=== PATIENT | female | born 1990 | race Caucasian/White ===

== ENCOUNTER 2017-12-26 08:52 | Emergency (ER) | payer SELFPAY ==
[~2017-12-26] VITALS: Ht 157.5 cm; Wt 33.2 kg
[~2017-12-26 08:52] MED LIST: NORE0.3519 PO
[2017-12-26 09:07] VITALS: BP 134/89
[2017-12-26] MEDS: KETOROLAC 60 MG/2 ML VIAL IM ONE (09:51)
[2017-12-26] MEDS: LEVOFLOXACIN 500 MG TAB PO ONE (09:52)
[2017-12-26 10:09] VITALS: BP 134/89
== END 2017-12-26 10:09 | disposition home or self-care (01) ==
LOC: MED 08:52
DX: N39.0 Urinary tract infection, site not specified (principal); R03.0 Elevated blood-pressure reading, without diagnosis of hypertension; Z79.899 Other long term (current) drug therapy
CPT/HCPCS: 81002; 81025; 96372; 99283; J1885

== ENCOUNTER 2019-05-27 01:30 | Observation (INO) | payer OTHER ==
[~2019-05-27] VITALS: Ht 157.5 cm; Wt 79.4 kg
[2019-05-27] MEDS ORDERED: LIDOCAINE 2% 1000 MG/50 ML VIAL INJ ONE (02:25)
[2019-05-27] MEDS ORDERED: cefTRIAXone 1,000 MG in LIDOCAINE MPF 1% 2.1 ML IM ONE (02:25)
[2019-05-27] MEDS ORDERED: cefTRIAXone 1,000 MG VIAL ONE (02:27)
[2019-05-27] MEDS ORDERED: LIDOCAINE 1% 500 MG/50 ML VIAL ONE (02:28)
[2019-05-27 02:43] VITALS: BP 116/55
[2019-05-27 03:19] LABS: APPEARANCE,URINE SL CLOUDY (CLEAR); BILIRUBIN,URINE NEGATIVE (NEGATIVE); BLOOD, URINE NEGATIVE (NEGATIVE); COLOR,URINE YELLOW (YELLOW); LEUKOCYTE ESTERASE ,URINE 2+ (NEGATIVE); NITRITE, URINE NEGATIVE (NEGATIVE); UGLUCOSE NEGATIVE (NEGATIVE)
[2019-05-27 04:09] LABS: RBC,URINE 0-5 /HPF (0-5); WBC,URINE 20-60 /HPF (0-5)
== END 2019-05-27 03:25 | disposition home or self-care (01) ==
LOC: MLD 01:30
PROVIDERS: ADMIT Obstetrics & Gynecology; ATTEND Obstetrics & Gynecology
DX: O26.892 Other specified pregnancy related conditions, second trimester (principal); R10.9 Unspecified abdominal pain; Z3A.23 23 weeks gestation of pregnancy
CPT/HCPCS: 81001; 87086; G0378; J0696; J2001

== ENCOUNTER 2019-12-16 00:35 | Emergency (ER) | payer OTHER ==
[~2019-12-16] VITALS: Ht 157.5 cm; Wt 77.1 kg
[2019-12-16 00:40] VITALS: BP 123/81
--- NOTE | 2019-12-16 00:40 | NUR ---
PT AMBULATED TO ER BED 04
[2019-12-16] MEDS ORDERED: NACL 0.9% 1,000 ML IV ONE (01:06)
--- NOTE | 2019-12-16 01:09 | NUR ---
29/F presents ambulatory to ED, c/o cramping epigastric and RUQ pain, x6hrs. Pt reports similar episode few days ago, similar pain with cholelithiasis in the past. Denies fever/chills, cough/congestion, CP/SOB, n/v/d, dysuria. Pt awake and alert, skin normal color warm and dry, rr even and unlabored. Lung sounds clear BL. BS active x4, abd soft round tender to epigastric and RUQ. Hx cholelithiasis Rx tylenol 6hrs without relief.
[2019-12-16] MEDS ORDERED: ONDANSETRON 4 MG/2 ML VIAL IVP ONE (01:10)
[2019-12-16] MEDS ORDERED: KETOROLAC 30 MG/ML VIAL IVP ONE (01:10)
--- NOTE | 2019-12-16 01:20 | NUR ---
IV PLACED IN L AC 20. IV SITE IS PATENT.
--- NOTE | 2019-12-16 01:28 | NUR ---
US AT BEDSIDE.
[2019-12-16 01:31] LABS: BASOPHILS % (AUTO) 0.3 % (0.0-2.0); EOSINOPHILS # (AUTO) 0.2 K/uL (0-0.4); EOSINOPHILS % (AUTO) 1.5 % (0.0-4.0); HEMOGLOBIN 13.7 g/dL (12.0-16.0); LYMPHOCYTES # (AUTO) 3.4 K/uL (2.5-16.5); LYMPHOCYTES % (AUTO) 23.5 % (20.5-51.1); MEAN CORPUSCULAR HEMOGLOBIN 29 pg (27-31); MEAN CORPUSCULAR HGB CONC 33 g/dL (33-37); MONOCYTES # (AUTO) 0.9 K/uL (0.8-1.0); MONOCYTES % (AUTO) 6.3 % (1.7-9.3); NEUTROPHILS % (AUTO) 68.4 % (42.2-75.2); PLATELET COUNT (AUTO) 226 K/uL (140-450); RED BLOOD CELL COUNT(AUTO) 4.72 MIL/uL (4.20-5.40); RED CELL DISTRIBUTION WIDTH 14.5 % (11.6-13.7); WHITE BLOOD COUNT (AUTO) 14.6 K/uL (4.8-10.8)
[2019-12-16 01:37] LABS: APPEARANCE,URINE SL CLOUDY (CLEAR); BLOOD, URINE NEGATIVE (NEGATIVE); COLOR,URINE YELLOW (YELLOW); LEUKOCYTE ESTERASE ,URINE NEGATIVE (NEGATIVE); NITRITE, URINE NEGATIVE (NEGATIVE); UGLUCOSE NEGATIVE (NEGATIVE)
[2019-12-16] MEDS ORDERED: ALUMINUM HYD/MAG/SIMETHICONE 30 ML UDC PO ONE (01:40)
[2019-12-16] MEDS ORDERED: MORPHINE SULFATE 2 MG/ML SYR IVP ONE (01:40)
[2019-12-16 01:49] LABS: ALBUMIN 3.7 g/dL (3.4-5.0); ANION GAP 12.1 (8-16); CARBON DIOXIDE 27.9 mmol/L (21-32); CREATININE 0.9 mg/dL (0.6-1.3); TOTAL BILIRUBIN 1.4 mg/dL (0.0-1.0)
[2019-12-16 01:51] LABS: BILIRUBIN,URINE NEGATIVE (NEGATIVE)
--- NOTE | 2019-12-16 01:52 | NUR ---
PT GIVEN MORPHINE 2MG IVP. IVP PATENT. NO REDNESS, SWELLING, OR SWELLING NOTED AT SITE. PT ON CARIDAC MONITOR. VSS.
--- NOTE | 2019-12-16 02:56 | NUR ---
PT STATES SHE IS GETTING A RIDE FROM FAMILY MEMBER. PT ROAD TESTED AND ABLE TO AMUALTE WITH STEADY GAIT. VSS. PT STATES PAIN HAS REDUCED FROM 7/10 ABD PAIN TO 3/10.
[2019-12-16 02:57] VITALS: BP 122/83
--- NOTE | 2019-12-16 02:57 | NUR ---
Patient discharged with v/s stable. Written and verbal after care instructions given and explained. Patient alert, oriented and verbalized understanding of instructions. Ambulatory with steady gait. All questions addressed prior to discharge. ID band removed. Patient advised to follow up with PMD. Rx of NAPROSYN, NORCO 5/325 given. Patient educated on indication of medication including possible reaction and side effects. Opportunity to ask questions provided and answered.
== END 2019-12-16 02:57 | disposition home or self-care (01) ==
LOC: MED 00:35
DX: K80.20 Calculus of gallbladder without cholecystitis without obstruction (principal); Z79.899 Other long term (current) drug therapy
CPT/HCPCS: 36415; 76705; 80053; 81003; 81025; 83690; 85025; 96374; 96375; 99284; J1885; J2270; J2405; J7030; Q0092

== ENCOUNTER 2019-12-27 18:11 | Emergency (ER) | payer OTHER ==
[~2019-12-27] VITALS: Ht 157.5 cm; Wt 77.1 kg
[2019-12-27 18:15] VITALS: BP 123/77
--- NOTE | 2019-12-27 18:21 | NUR ---
PT AMBULATED TO ER BED 11
[2019-12-27 18:23] VITALS: BP 123/77
--- NOTE | 2019-12-27 18:30 | NUR ---
C/O BACK PAIN X2 WEEKS, STARTING AT LUMBAR REGION AND EXTENDING DOWN TO COCCYX. PT DENIES ANY RECENT INJURY/ UTI SYMPTOMS. ALSO C/O ABCESS OF SIDE OF LEFT BREAST, PT STATES SHE ATTEMPTED TO POP IT THIS MORNING, HAS WHITE DRAINAGE AND NOW IT IS GIVING HER 7/10 PAIN.PT AWAKE , ALERT , AFIBRILE , AMBULATORY ,DENIES N/V NO PMH NKA
--- NOTE | 2019-12-27 18:32 | NUR ---
DR MIRZA AT BEDSIDE EVALUATING PT.
[2019-12-27] MEDS ORDERED: KETOROLAC 30 MG/ML VIAL IM ONE (18:35)
[2019-12-27] MEDS ORDERED: CYCLOBENZAPRINE 10 MG TAB PO ONE (18:35)
[2019-12-27 18:43] LABS: APPEARANCE,URINE CLEAR (CLEAR); BILIRUBIN,URINE NEGATIVE (NEGATIVE); BLOOD, URINE NEGATIVE (NEGATIVE); COLOR,URINE YELLOW (YELLOW); LEUKOCYTE ESTERASE ,URINE NEGATIVE (NEGATIVE); NITRITE, URINE NEGATIVE (NEGATIVE); UGLUCOSE NEGATIVE (NEGATIVE)
--- NOTE | 2019-12-27 18:44 | NUR ---
PT TO XRAY VIA WHEELCHAIR.
--- NOTE | 2019-12-27 19:09 | NUR ---
GAVE REPORT TO PERI PINEDA.PT COMFORTABLE IN BED SIDE RAILS UP X1 AND LOCK.
--- NOTE | 2019-12-27 19:12 | NUR ---
RECIEVED CHANGE OF SHIFT REPORT FROM PETE WHITT. ASSUMED PT CARE THIS TIME.
--- NOTE | 2019-12-27 19:32 | NUR ---
Patient discharged with v/s stable. Written and verbal after care instructions given and explained. Patient alert, oriented and verbalized understanding of instructions. Ambulatory with steady gait. All questions addressed prior to discharge. ID band removed. Patient advised to follow up with PMD. Rx of FLEXERIL given. Patient educated on indication of medication including possible reaction and side effects. Opportunity to ask questions provided and answered.
== END 2019-12-27 19:32 | disposition home or self-care (01) ==
LOC: MERGE 18:11 → MED 18:11
DX: M54.5 Low back pain (principal); N63.10 Unspecified lump in the right breast, unspecified quadrant
CPT/HCPCS: 72110; 81003; 81025; 96372; 99283; J1885

== ENCOUNTER 2019-12-29 11:38 | Emergency (ER) | payer OTHER ==
[~2019-12-29] VITALS: Ht 157.5 cm; Wt 77.1 kg
[2019-12-29 11:40] VITALS: BP 106/59
--- NOTE | 2019-12-29 11:40 | NUR ---
Patient BIBA ALS, transferred to bed 1. RN evaluating patient at bedside.
--- NOTE | 2019-12-29 11:41 | NUR ---
29 Y/O FEMALE BIBA C/O SUDDEN CHEST PAIN . PT STATES AT AROUND 10 AM THIS MORNING SHE STARTED HAVING A SHARP CHEST. PT RATES PAIN 7/10, DESCRIBES SHARP PRESSURE. PT STATES SHE HAS NEVER HAD THIS FEELING BEFORE. PT STATES SHE HAS A LOT OF STRESS RIGHT NOW W/ BABY AND MEDICAL ISSUES. PT DENIES N/V/D/F. PT BREATHING EVEN AND UNLABORED. PT RESTING IN BED AT LOWEST POSITION, HOB ELEVATED, SIDE RAIL X1. HX: ARRYTHMIA " DX A WHILE AGO."
--- NOTE | 2019-12-29 12:23 | NUR ---
INFORMED DR. LIAO PT IS FEELING VERY ANXIOUS AND HR IS IN 140s. REQUESTED GIVING HER ATIVAN TO HELP EASE HER ANXIETY. PER DR LIAO IF PT HAS A RIDE HOME, WE CAN MEDICATE WITH ATIVAN. WILL ASK PT.
[2019-12-29] MEDS: KETOROLAC 30 MG/ML VIAL IM ONE (12:24)
--- NOTE | 2019-12-29 12:28 | NUR ---
PT STATES SHE WILL BE HAVING FAMILY PICK HER UP ONCE SHE IS DISCHARGED.
[2019-12-29] MEDS: LORazepam 2 MG/ML VIAL IM ONE (12:37)
[2019-12-29 13:22] VITALS: BP 110/61
--- NOTE | 2019-12-29 13:26 | NUR ---
Patient discharged with v/s stable. Written and verbal after care instructions given and explained. Patient alert, oriented and verbalized understanding of instructions. Ambulatory with steady gait. All questions addressed prior to discharge. ID band removed. Patient advised to follow up with PMD. Rx of MOTRIN given. Patient educated on indication of medication including possible reaction and side effects. Opportunity to ask questions provided and answered. PT STATED HER SISTER IN LAW WILL BE PICKING HER UP.
== END 2019-12-29 13:26 | disposition home or self-care (01) ==
LOC: MED 11:38
DX: R07.9 Chest pain, unspecified (principal); F41.9 Anxiety disorder, unspecified; Z79.899 Other long term (current) drug therapy
CPT/HCPCS: 71045; 81002; 81025; 93005; 96372; 99284; J1885; J2060; Q0092

== ENCOUNTER 2020-02-04 20:39 | Emergency (ER) | payer OTHER ==
--- NOTE | 2020-02-04 21:00 | NUR ---
PT LWBS WITHOUT BEING TRIAGED.
== END 2020-02-04 21:00 | disposition left against medical advice (07) ==
LOC: MED 20:39
DX: R10.9 Unspecified abdominal pain (principal); Z53.21 Procedure and treatment not carried out due to patient leaving prior to being seen by health care provider

== ENCOUNTER 2020-02-10 03:18 | Inpatient (IN) | payer OTHER ==
[~2020-02-10] VITALS: Ht 157.5 cm; Wt 73.5 kg
--- NOTE | 2020-02-10 03:26 | NUR ---
PT NAOMI ALS. TAKEN TO BED 12
--- NOTE | 2020-02-10 03:30 | NUR ---
29 YO F BIBA FOR C/C OF 05/13 RUQ ABDOMINAL PAIN THAT RADIATES TO EPIGASTRIC REGION SINCE 3PM TODAY. PT STATES SHE WAS SEEN FOR AN ULTRASOUND AT A CLINIC TODAY AND IS UNSURE OF WHAT THE RESULTS ARE. SHE CAME TO THE ER "BECAUSE SHE CANT TAKE THE PAIN ANYMORE." PT STATES SHE HAS BEEN FEELING NAUSEOUS WITH NO V/D. PT STATES SHE TOOK 800MG OF IBUPROFEN AT 1900 WITH NO RELIEF OF SYMPTOMS. DENIES COUGH, FEVER, SOB, AND TRAVEL. BED LOCKED AND IN LOWEST POSITION. NKA MED HX: GALLSTONES RX: CONTROL PILLS
[2020-02-10 03:31] VITALS: BP 130/95
[2020-02-10] MEDS ORDERED: NACL 0.9% 500 ML IV ONE (03:35)
[2020-02-10] MEDS ORDERED: KETOROLAC 30 MG/ML VIAL IVP ONE (03:35)
[2020-02-10] MEDS ORDERED: ONDANSETRON 4 MG/2 ML VIAL IVP ONE (03:35)
--- NOTE | 2020-02-10 03:58 | NUR ---
Ultrasound at bedside.
[2020-02-10 04:51] LABS: ANION GAP 14.8 (8-16); CARBON DIOXIDE 27.9 mmol/L (21-32); CREATININE 0.8 mg/dL (0.6-1.3); POTASSIUM 3.7 mmol/L (3.5-5.1); TOTAL BILIRUBIN 2.3 mg/dL (0.0-1.0)
[2020-02-10 05:08] LABS: BASOPHILS % (AUTO) 0.2 % (0.0-2.0); EOSINOPHILS # (AUTO) 0.1 K/uL (0-0.4); EOSINOPHILS % (AUTO) 1.2 % (0.0-4.0); HEMATOCRIT 47.6 % (36-48); HEMOGLOBIN 15.6 g/dL (12.0-16.0); LYMPHOCYTES # (AUTO) 1.8 K/uL (2.5-16.5); LYMPHOCYTES % (AUTO) 17.1 % (20.5-51.1); MEAN CORPUSCULAR HEMOGLOBIN 29 pg (27-31); MEAN CORPUSCULAR HGB CONC 33 g/dL (33-37); MEAN CORPUSCULAR VOLUME 88.7 fL (80-94); MONOCYTES # (AUTO) 0.8 K/uL (0.8-1.0); MONOCYTES % (AUTO) 7.7 % (1.7-9.3); NEUTROPHILS # (AUTO) 7.7 K/uL (1.8-7.7); NEUTROPHILS % (AUTO) 73.8 % (42.2-75.2); PLATELET COUNT (AUTO) 229 K/uL (140-450); RED BLOOD CELL COUNT(AUTO) 5.37 MIL/uL (4.20-5.40); RED CELL DISTRIBUTION WIDTH 13.8 % (11.6-13.7); WHITE BLOOD COUNT (AUTO) 10.5 K/uL (4.8-10.8)
--- NOTE | 2020-02-10 05:15 | NUR ---
PT STATES HER PAIN IS STILL 10/10 POST IVP OF TORODOL. JEROMED MADE AWARE.
[2020-02-10] MEDS ORDERED: MORPHINE SULFATE 2 MG/ML SYR IVP ONE (05:20)
[2020-02-10] MEDS ORDERED: NACL 0.9% 1,000 ML IV ONE (05:20)
--- NOTE | 2020-02-10 06:25 | NUR ---
Dr. Del Toro examining patient.
--- NOTE | 2020-02-10 06:45 | NUR ---
PT REQUESTING MORE PAIN MEDICATION. PAIN IS STILL 6/10 POST 2MG IVP MORPHINE.
[2020-02-10] MEDS: NACL 0.9% 1,000 ML IV SCH ×2 (06:50→16:00)
[2020-02-10] MEDS ORDERED: SODIUM PHOSPHATE 118 ML ENEM RC PRN (06:50)
[2020-02-10] MEDS ORDERED: MAG SULF 2000 MG/WATER PREMIX 50 ML IV PRN (06:50)
[2020-02-10] MEDS ORDERED: ZOLPIDEM 5 MG TAB PO PRN (06:50)
[2020-02-10] MEDS ORDERED: ACETAMINOPHEN 325 MG TAB PO PRN (06:50)
[2020-02-10] MEDS ORDERED: HYDROcodone/APAP 5/325 MG 1 TAB TAB PO PRN (06:50)
[2020-02-10] MEDS ORDERED: DOCUSATE SODIUM 250 MG GELCAP PO PRN (06:50)
[2020-02-10] MEDS ORDERED: MAGNESIUM OXIDE 400 MG TAB PO PRN (06:50)
[2020-02-10] MEDS ORDERED: ALUMINUM HYD/MAG/SIMETHICONE 30 ML UDC PO PRN (06:50)
[2020-02-10] MEDS ORDERED: BISACODYL 10 MG SUPP RC PRN (06:50)
[2020-02-10] MEDS ORDERED: guaiFENesin DM 200/20 MG-10 ML 10 ML UDC PO PRN (06:50)
[2020-02-10] MEDS ORDERED: POTASSIUM CHLORIDE 10 MEQ TABER PO PRN (06:50)
[2020-02-10] MEDS ORDERED: ONDANSETRON 4 MG/2 ML VIAL IVP PRN (06:50)
[2020-02-10] MEDS ORDERED: ACETAMINOPHEN 650 MG SUPP RC PRN (06:50)
[2020-02-10] MEDS ORDERED: LORazepam 2 MG/ML VIAL IVP PRN (06:50)
[2020-02-10] MEDS ORDERED: cloNIDine 0.1 MG TAB PO PRN (06:50)
[2020-02-10] MEDS ORDERED: diphenhydrAMINE 50 MG/ML VIAL IVP PRN (06:50)
--- NOTE | 2020-02-10 07:25 | NUR ---
REPORT GIVEN TO PERI WATTS. TRANSFER OF CARE AT THIS TIME.
--- NOTE | 2020-02-10 07:25 | NUR ---
RECEIVED REPORT FROM ALISE FOR CONTUATION OF CARE
--- NOTE | 2020-02-10 08:00 | NUR ---
PT EATING IN BED, NO NEW NEEDS AT THIS TIME
[2020-02-10] MEDS ORDERED: NORETHINDRONE 0.35 MG PO SCH (09:00)
[2020-02-10] MEDS: FAMOTIDINE 20 MG/2 ML VIAL IV SCH (09:36)
[2020-02-10] MEDS: ENOXAPARIN 40 MG/0.4 ML SYR SUBQ SCH (09:51)
--- NOTE | 2020-02-10 10:00 | NUR ---
PT AMBULATED TO RESTROOM WITH STEADY GAIT
--- NOTE | 2020-02-10 12:11 | NUR ---
PT ASLEEP IN BED, AROUSABLE WITH VERBAL STIMULI.
--- NOTE | 2020-02-10 14:00 | NUR ---
PT EATING AT BEDSIDE, NO NEW NEEDS AT THIS TIME. DENIES PAIN
--- NOTE | 2020-02-10 15:05 | NUR ---
Pt admitted to room 106A from ED via gurney. Able to amb with steady gait from gurney to bed. Left AC IV 20G intact and asymptomatic. Medical hx obtained from pt. Pt oriented to room and unit. Call light placed within reach.
--- NOTE | 2020-02-10 15:05 | NUR ---
Patient will be admitted to care of DR. MORALES. Admited to MED SURGE. Will go to room 106A. Belongings list completed. Report to PERI GOSS.
[2020-02-10 15:30] VITALS: BP 119/79
--- NOTE | 2020-02-10 16:18 | NUR ---
PATIENT HAS BEEN SCREENED AND CATEGORIZED MODERATE NUTRITION RISK. PATIENT WILL BE SEEN WITHIN 3-5 DAYS OF ADMISSION. 02/12/20 02/14/[address]
[2020-02-10] MEDS: HYDROcodone/APAP 5/325 MG 1 TAB TAB PO PRN ×2 (16:21→22:34)
--- NOTE | 2020-02-10 18:30 | NUR ---
Pt inquiring if ok to resume Norethindrone as soon as available; pt normally takes it @ [address] daily. Dr. King paged re: pt concern. Awaiting call back.
--- NOTE | 2020-02-10 19:16 | NUR ---
Report given to pm nurse Barb.
--- NOTE | 2020-02-10 19:20 | NUR ---
RECEIVED PT IN STABLE CONDITION FROM AM NURSE. AWAKE,ALERT AND ORIENTED X4. MEDS SURG PT. AMBULATORY . WITH IVF INFUSING WELL ON THE LT AC G#20 . CLEAR AND PATENT. WITH NO C/O ANY PAIN AT THIS TIME. PLAN OF CARE DISCUSSED AND VERBALIZED UNDERSTANDING. FREQ ROUNDS NEEDED. BED ON LOW POSITION. SIDE RAILS UP X2. CALL LIGHT PLACED WITHIN REACH. WILL CONTINUE TO MONITOR.
--- NOTE | 2020-02-10 22:34 | NUR ---
C/O ABDOMINAL PAIN . MEDICATED A S ORDERED. WILL CONTINUE TO MONITOR.
[2020-02-10] MEDS: DEXT 5% / LACT RING 1,000 ML IV SCH (22:39)
[2020-02-10 23:52] LABS: ANION GAP 11.6 (8-16); CARBON DIOXIDE 27.4 mmol/L (21-32); CREATININE 0.7 mg/dL (0.6-1.3)
[2020-02-11] VITALS: BP 104/66
--- NOTE | 2020-02-11 00:30 | NUR ---
CHECKED ON PT. SLEEPING WELL. NO S/S OF ANY DISCOMFORT NOTED.
--- NOTE | 2020-02-11 02:30 | NUR ---
MADE OROUNDS PT. SLEEPING WITH NO S/S OF ANY PAIN NOR DISCOMFORT NOTED.
--- NOTE | 2020-02-11 04:00 | NUR ---
HAS BEEN UP TO THE BATHROOM , VOIDED. NO C/O PAIN NOTED.
[2020-02-11] MEDS: FAMOTIDINE 20 MG/2 ML VIAL IV SCH (06:03)
--- NOTE | 2020-02-11 06:10 | NUR ---
AWAKE. NO C/O DISCOMFORT /PAIN NOTED.
[2020-02-11 06:46] LABS: BASOPHILS % (AUTO) 0.3 % (0.0-2.0); EOSINOPHILS # (AUTO) 0.2 K/uL (0-0.4); EOSINOPHILS % (AUTO) 2.2 % (0.0-4.0); HEMATOCRIT 39.7 % (36-48); HEMOGLOBIN 13.1 g/dL (12.0-16.0); LYMPHOCYTES % (AUTO) 41.5 % (20.5-51.1); MEAN CORPUSCULAR HEMOGLOBIN 29 pg (27-31); MEAN CORPUSCULAR HGB CONC 33 g/dL (33-37); MEAN CORPUSCULAR VOLUME 89.1 fL (80-94); MONOCYTES # (AUTO) 0.6 K/uL (0.8-1.0); MONOCYTES % (AUTO) 8.2 % (1.7-9.3); NEUTROPHILS # (AUTO) 3.4 K/uL (1.8-7.7); NEUTROPHILS % (AUTO) 47.8 % (42.2-75.2); PLATELET COUNT (AUTO) 184 K/uL (140-450); RED BLOOD CELL COUNT(AUTO) 4.46 MIL/uL (4.20-5.40); RED CELL DISTRIBUTION WIDTH 13.6 % (11.6-13.7); WHITE BLOOD COUNT (AUTO) 7.1 K/uL (4.8-10.8)
--- NOTE | 2020-02-11 07:08 | NUR ---
CONTROL PILL NEED TO HAVE ORDER IF OK TO CONTINUE HERE. ENDORSE PT IN STABLE CONDITION TO AM NURSE.
[2020-02-11 07:23] LABS: ALBUMIN 2.8 g/dL (3.4-5.0); ANION GAP 10.6 (8-16); CARBON DIOXIDE 27.4 mmol/L (21-32); CREATININE 0.7 mg/dL (0.6-1.3); TOTAL BILIRUBIN 0.5 mg/dL (0.0-1.0)
--- NOTE | 2020-02-11 07:24 | NUR ---
RECEIVED PATIENT FROM LICENSED FINAL EXPENSE AGENTS NURSE FOR CONTINUITY OF CARE. PATIENT IS AAOX4, CROATIAN SPEAKING. RESPIRATIONS EVEN AND UNLABORED, ROOM AIR. VISIBLE CHEST RISE AND FALL NOTED. MED-SURG. ABDOMEN SOFT TENDER, BUT DENIES ABD PAIN AT THIS TIME. CLEAR LIQ DIET. SKIN WARM, DRY, AND INTACT. IV IN THE L AC G20 RUNNING D5LR AY 100 ML/HR. IVF RUNNING WELL. PATIENT IS AMBULATORY. SAFETY MEASURES IN PLACE. BED IN LOW POSITION. CALL LIGHT IS WITHIN REACH. WILL CONTINUE TO MONITOR.
[2020-02-11] MEDS: DEXT 5% / LACT RING 1,000 ML IV SCH ×3 (07:25→19:43)
[2020-02-11 08:00] VITALS: BP 107/70
[2020-02-11] MEDS: ENOXAPARIN 40 MG/0.4 ML SYR SUBQ SCH (08:42)
--- NOTE | 2020-02-11 08:42 | NUR ---
LOVENOX SUBQ IN THE ABD GIVEN. PLATELET 184. GIVEN MEDICATION EDUCATION. PATIENT VERBALIZED UNDERSTANDING. HUNG NEW IV BAG D5LR AT 100 ML/HR. PATIENT DENIES ABD PAIN AT THIS TIME. PER PATIENT, DR. JALLOH CAME BY AND TALKED TO HER. PLAN IS TO DO THE ERCP AND POSSIBLE LAP KAREEM TOMORROW.
--- NOTE | 2020-02-11 10:32 | NUR ---
PATIENT AWAKE, TEXTING. DENIES ABD PAIN. PATIENT STATED SHE IS OKAY. ALL NEEDS MET AT THIS TIME. SAFETY MEASURES IN PLACE. WILL CONTINUE TO MONITOR.
--- NOTE | 2020-02-11 11:53 | NUR ---
OBTAINED CONSENT FOR LAP KAREEM. PATIENT STATED THAT DR. JALLOH ALREADY EXPLAINED TO HER THE RISK AND BENEFITS OF THE SURGERY. IT IS SCHEDULED AT 1630 TODAY. PATIENT AWARE. NPO NOW.
--- NOTE | 2020-02-11 12:49 | NUR ---
DC PLANN[age] YRS OLD FEMALE PATIENT WAS ADMITTED FROM HOME WITH A DX OF PANCREATITIS LIPASE LEVEL 4140 . PT HAS NO MEDICAL HISTORY. ULTRASOUND OF GALLBLADDER SHOWED GALLSTONES. SEEN BY SURGEON DR JALLOH RECOMMENDED TO BE EVALUATED BY GI FOR POSSIBLE ERCP AND PLAN FOR LAP KAREEM. SEEN BY DR WALLER GI ORDERED TO HAVE LAP KAREEM AND ERCP TO BE CONSIDERED EITHER FOR THE PERSISTENT SYMPTOMS OR ABNORMAL CHOLANGIOGRAM. FURTHER RECOMMENDATION TO FOLLOW. DC PLAN PER MD RECOMMENDATIONS CM TO FOLLOW.
--- NOTE | 2020-02-11 13:00 | NUR ---
PATIENT AMBULATED TO THE BATHROOM. DENIES ABD PAIN AND DIZZINESS.
--- NOTE | 2020-02-11 14:02 | NUR ---
PER PHARMACIST SHREYA, PATIENT CAN TAKE CARE OF HER CONTROL. PATIENT STATED SHE WON'T TAKE IT YET UNTIL HER SURGERY IS DONE. SHREYA MADE JERONIMO
--- NOTE | 2020-02-11 14:35 | NUR ---
DR. HARGROVE MADE ROUNDS. MADE JERONIMO PATIENT GOING TO HAVE LAP KAREEM AT 1630
--- NOTE | 2020-02-11 15:44 | NUR ---
CHECKED PATIENT. PATIENT STATED SHE IS GETTING NERVOUS ABOUT THE SURGERY BUT AT THE SAME TIME BEING POSITIVE ABOUT THE PAIN BEING ONE.
[2020-02-11 16:00] VITALS: BP 111/72
[2020-02-11] MEDS ORDERED: LACTATED RINGERS 1,000 ML IV SCH (16:22)
[2020-02-11] MEDS ORDERED: MEPERIDINE 25 MG/ML SYR IVP PRN (16:25)
[2020-02-11] MEDS ORDERED: ONDANSETRON 4 MG/2 ML VIAL IVP PRN (16:25)
[2020-02-11] MEDS ORDERED: HYDROmorphone 1 MG/ML AMP IVP PRN (16:25)
--- NOTE | 2020-02-11 16:40 | NUR ---
PATIENT OFF TO OR FOR LAP KAREEM
[2020-02-11] MEDS: LIDOCAINE 1% 500 MG/50 ML VIAL ONE ×2 (16:56→18:39)
[2020-02-11] MEDS: BUPIVACAINE-MPF 0.25% 30 ML VIAL INJ ONE ×2 (16:56→18:38)
[2020-02-11] MEDS ORDERED: KETOROLAC 60 MG/2 ML VIAL IM ONE (17:11)
[2020-02-11] MEDS ORDERED: SEVOFLURANE 250 ML BTL INH ONE (17:11)
[2020-02-11] MEDS ORDERED: fentaNYL 0.05 MG/ML VIAL ONE (17:11)
[2020-02-11] MEDS ORDERED: DEXAMETHASONE 4 MG/ML VIAL ONE (17:11)
[2020-02-11] MEDS ORDERED: PROPOFOL 200 MG/20 ML VIAL IV ONE (17:11)
[2020-02-11] MEDS ORDERED: ROCURONIUM 50 MG/5 ML VIAL IV ONE (17:11)
[2020-02-11] MEDS ORDERED: SUGAMMADEX SODIUM 200 MG/2 ML VIAL IV ONE (17:11)
[2020-02-11] MEDS: HYDROmorphone PFS 2 MG/ML SYR ONE ×2 (18:55→19:05)
--- NOTE | 2020-02-11 19:15 | NUR ---
ENDORSED PATIENT TO PERI DASILVA FOR CONTINUITY OF CARE. PATIENT IS STILL IN OR FOR LAP KAREEM
--- NOTE | 2020-02-11 19:20 | NUR ---
RECEIVED ENDORSEMENT FROM AM SHIFT RN. PATIENT IS NOT IN HER ROOM, PATIENT IS STILL IN THE O.R. RIGHT NOW. PLAN OF CARE WAS DISCUSSED.
--- NOTE | 2020-02-11 19:30 | NUR ---
PATIENT WAS BACK TO HER ROOM VIA GURNEY FROM O.R. PATIENT IS NOTED WITH PAIN, BUT NURSE JOSE FROM O.R. SAID SHE GAVE THE PATIENT A PAIN MED IV. AOX4. NO SOB. NO DISTRESS NOTED. APPEARS WEAK. ASSESSMENT DONE, IV SITE AT LAC 20G, INTACT AND PATENT. NOTED 3 SMALL INCISIONS ON UPPER ABDOMEN AND 1 SMALL INCISION AT THE NAVEL, WITH DERMA PERSON ENDORSED BY PERI GARCIA. VERY MINIMAL BLEEDING NOTED AT NAVEL AREA. BP 115/68, HR65, 97.2, 16, 96% ON RA. KEPT COMFORTABLE. CALL LIGHT WITHIN REACH. WILL CONTINUE TO MONITOR.
[2020-02-11] MEDS: MORPHINE SULFATE 2 MG/ML SYR IVP PRN (22:17)
--- NOTE | 2020-02-11 22:17 | NUR ---
PATIENT C/O ABDOMINAL PAIN, 05/13. REPOSITIONED AND PAIN MED GIVEN ORDERED. MED EDUCATION PROVIDED.
[2020-02-11] MEDS ORDERED: HYDROcodone/APAP 5/325 MG 1 TAB TAB PO PRN (23:00)
--- NOTE | 2020-02-11 23:17 | NUR ---
PATIENT IS RESTING AND DENIES PAIN.
[2020-02-12] VITALS: BP 121/73
[2020-02-12] MEDS: MORPHINE SULFATE 2 MG/ML SYR IVP PRN ×2 (02:24→07:06)
--- NOTE | 2020-02-12 07:00 | NUR ---
RECEIVED REPORT FROM PUBLIC RELATIONS NURSE FOR CONTINUITY OF CARE. PATIENT IS STABLE. AOX4. ABDOMINAL PAIN WAS CONTROLLED WITH PAIN MED. NO RESPIRATORY DISTRESS. BED IN LOW POSITION, CALL LIGHT IN REACH, SAFETY MEASURE IN PLACE, WILL CONTINUE TO MONITOR. MNURLS
[2020-02-12] MEDS: FAMOTIDINE 20 MG/2 ML VIAL IV SCH (07:05)
--- NOTE | 2020-02-12 07:30 | NUR ---
PATIENT IS NOT IN ANY RESPIRATORY DISTRESS. ENDORSED TO AM SHIFT RN FOR CONTINUITY OF CARE.
[2020-02-12 08:00] VITALS: BP 121/70
[2020-02-12] MEDS: ENOXAPARIN 40 MG/0.4 ML SYR SUBQ SCH (08:48)
--- NOTE | 2020-02-12 08:51 | NUR ---
SCHEDULED AM MEDICATIONS GIVEN, PT TOLERATED WELL.
[2020-02-12] MEDS: DEXT 5% / LACT RING 1,000 ML IV SCH (08:55)
[2020-02-12] MEDS: HYDROcodone/APAP 5/325 MG 1 TAB TAB PO PRN (12:01)
--- NOTE | 2020-02-12 13:00 | NUR ---
PATIENT IS STABLE, DISCHARGE INSTRUCTION WAS GIVEN, VERBALIZED UNDERSTAND. PATIENT WAS TRANSFERRED TO PRIVATE CAR WITH WHEELCHAIR.
== END 2020-02-12 13:56 | disposition home or self-care (01) | DRG 263 ==
LOC: MED 03:18 → MMU 06:36 → MTU 14:21
PROVIDERS: ADMIT Hospitalist; ATTEND Hospitalist
PROC: BF101ZZ Fluoroscopy of Bile Ducts using Low Osmolar Contrast (ICD-10-PCS; 2020-02-11)
PROC: 0FT44ZZ Resection of Gallbladder, Percutaneous Endoscopic Approach (ICD-10-PCS; principal; 2020-02-11 16:30)
DX: K85.10 Biliary acute pancreatitis without necrosis or infection (principal); K80.70 Calculus of gallbladder and bile duct without cholecystitis without obstruction; K59.00 Constipation, unspecified
CPT/HCPCS: 36415; 74300; 76705; 80048; 80053; 83690; 85025; 87081; 96374; 96375; 99285; J1100; J1170; J1650; J1885; J2001; J2270; J2405; J2704; J3010; J3490; J7030; Q0092; Q9967

== ENCOUNTER 2020-12-25 01:45 | Emergency (ER) | payer OTHER ==
[~2020-12-25] VITALS: Ht 157.5 cm; Wt 67.1 kg
--- NOTE | 2020-12-25 01:45 | NUR ---
PATIENT TAKEN TO BED 11 VIA GURNEY WITH ASSISTENCE BY EMS.
[2020-12-25 01:52] VITALS: BP 128/77
--- NOTE | 2020-12-25 01:55 | NUR ---
PATIENT 30 Y/O FEMALE BIBA FOR C/O UPPER ABDOMINAL PAIN X 4 DAYS. PATIENT BS PRESENT X 4 QUADRANTS. ABDOMEN TENDER TO TOUCH RUQ, RLQ, AND LUQ. PATIENT STATES PAIN RADIATES TO R FLANK. PAIN 8/10, SHARP, AND CONTINOUS. PATIENT STATES HAS HAD EPISODES OF NAUSEA, AND DIARRHEA STARTED TODAY. KATEYN ALSO STATES THAT PRIOR TO ARRIVAL SHE URINATED AND FELT NEW ONSET OF BURNING WHIEL URINATING. 4MG ODT OF ZOFRAN GIVEN BY EMS PRIOR TO ARRIVAL. PATIENT ADMITS TO HX OF GALLBLADDER SURGERY. PATIENT ON BEDSIDE MONITOR. AFEBRILE. MEDHX: GALLBLADDER REMOVAL. ALLERGIES: NKA
[2020-12-25] MEDS ORDERED: NACL 0.9% 1,000 ML IV ONE (02:10)
[2020-12-25] MEDS ORDERED: MORPHINE SULFATE 4 MG/ML SYR IVP ONE (02:10)
[2020-12-25] MEDS ORDERED: ONDANSETRON 4 MG/2 ML VIAL IVP ONE (02:10)
--- NOTE | 2020-12-25 02:15 | NUR ---
LABS COLLECTED AND GIVEN TO Personal.
--- NOTE | 2020-12-25 02:20 | NUR ---
PATIENT SIGNED CONSENT FOR CT OF ABDOMEN/PELVIS WITH CONTRAST. IV 20G IN L AC PLACED AND PATENT.
[2020-12-25 02:23] LABS: APPEARANCE,URINE CLEAR (CLEAR); BILIRUBIN,URINE NEGATIVE (NEGATIVE); BLOOD, URINE TRACE-I (NEGATIVE); COLOR,URINE YELLOW (YELLOW); LEUKOCYTE ESTERASE ,URINE TRACE (NEGATIVE); NITRITE, URINE NEGATIVE (NEGATIVE); UGLUCOSE NEGATIVE (NEGATIVE)
[2020-12-25 02:25] LABS: BASOPHILS # (AUTO) 0.3 K/uL (0.00-0.22); BASOPHILS % (AUTO) 3.1 % (0.0-2.0); EOSINOPHILS # (AUTO) 0.1 K/uL (0-0.4); EOSINOPHILS % (AUTO) 1.2 % (0.0-4.0); HEMATOCRIT 44.7 % (36-48); HEMOGLOBIN 15.2 g/dL (12.0-16.0); LYMPHOCYTES # (AUTO) 1.9 K/uL (2.5-16.5); LYMPHOCYTES % (AUTO) 16.9 % (20.5-51.1); MEAN CORPUSCULAR HEMOGLOBIN 30 pg (27-31); MEAN CORPUSCULAR HGB CONC 34 g/dL (33-37); MEAN CORPUSCULAR VOLUME 88.8 fL (80-94); MONOCYTES # (AUTO) 0.3 K/uL (0.8-1.0); MONOCYTES % (AUTO) 3.1 % (1.7-9.3); NEUTROPHILS # (AUTO) 8.3 K/uL (1.8-7.7); NEUTROPHILS % (AUTO) 75.7 % (42.2-75.2); PLATELET COUNT (AUTO) 194 K/uL (140-450); RED BLOOD CELL COUNT(AUTO) 5.04 MIL/uL (4.20-5.40); RED CELL DISTRIBUTION WIDTH 13.6 % (11.6-13.7)
[2020-12-25 02:38] LABS: ALBUMIN 4.4 g/dL (3.4-5.0); CARBON DIOXIDE 26.9 mmol/L (21-32); CREATININE 0.8 mg/dL (0.6-1.3)
[2020-12-25 02:41] LABS: POTASSIUM 2.9 mmol/L (3.5-5.1)
[2020-12-25] MEDS ORDERED: POTASSIUM CHLORIDE 10 MEQ TABER PO ONE (02:45)
[2020-12-25] MEDS ORDERED: IBUP-2213 PO (04:10)
[2020-12-25] MEDS ORDERED: CEPH-588 PO (04:10)
[2020-12-25] MEDS ORDERED: BEN10 PO (04:10)
[2020-12-25] MEDS ORDERED: ONDA-24 PO (04:10)
[2020-12-25] MEDS ORDERED: PYR100 PO (04:10)
[2020-12-25 04:46] VITALS: BP 128/77
--- NOTE | 2020-12-25 04:47 | NUR ---
Patient discharged with v/s stable. Written and verbal after care instructions given and explained. Patient alert, oriented and verbalized understanding of instructions. Ambulatory with to car. All questions addressed prior to discharge. ID band removed. Patient advised to follow up with PMD. Rx of KEFLE, IBUPROFEN, ZOFRAN ODT, PYRIDIUM given. Patient educated on indication of medication including possible reaction and side effects. Opportunity to ask questions provided and answered.
== END 2020-12-25 04:46 | disposition home or self-care (01) ==
LOC: MED 01:45
DX: N39.0 Urinary tract infection, site not specified (principal); R11.0 Nausea; R19.7 Diarrhea, unspecified; Z90.49 Acquired absence of other specified parts of digestive tract
CPT/HCPCS: 36415; 74177; 80053; 81001; 81025; 83690; 85025; 87086; 96361; 96374; 96375; 99285; J2270; J2405; J7030; Q9967

== ENCOUNTER 2022-05-24 03:25 | Emergency (ER) | payer OTHER ==
[~2022-05-24] VITALS: Ht 157.5 cm; Wt 65.8 kg
[~2022-05-24 03:25] MED LIST changes: +BEN10 PO; +CEPH-588 PO; +IBUP-2213 PO; +ONDA-188 PO; +PYR100 PO
[2022-05-24 03:50] VITALS: BP 104/70
--- NOTE | 2022-05-24 03:55 | NUR ---
PT TAKEN TO BED 8
--- NOTE | 2022-05-24 04:00 | NUR ---
Pt coming from home ambulatory with steady gait. Pt c/o right foot pain, swelling, and pink. Pt states since Friday pain started and currently pain is 10/10. no trauma. States she has been wearing heels alot lately. NKA. No known medical conditions. HR elevated at 118, pt states she is anxious. other vitals stable. No chest pain and no sob. Denies n/v. A&Ox4. Bed in lowest position.
--- NOTE | 2022-05-24 04:01 | NUR ---
Dr. Felder examining patient.
[2022-05-24] MEDS ORDERED: methylPREDNISolone SS 125 MG/2 ML VIAL IM ONE (04:10)
[2022-05-24] MEDS ORDERED: KETOROLAC 60 MG/2 ML VIAL IM ONE (04:10)
--- NOTE | 2022-05-24 04:10 | NUR ---
RADIOLOGY AT BEDSIDE
[2022-05-24] MEDS ORDERED: INDO-305 PO (04:24)
[2022-05-24] MEDS ORDERED: PRED20TA5 PO (04:24)
--- NOTE | 2022-05-24 04:34 | NUR ---
Urine pre done and results were negative
--- NOTE | 2022-05-24 04:57 | NUR ---
Discharged pt and educated pt on discharge instructions. Pt verbalized understanding with no further questions. Pt has no c/o. A&Ox4. VSS. Ambulatory with steady gait. Skin intcat. No IV in place.
[2022-05-24 04:58] VITALS: BP 115/76
== END 2022-05-24 04:57 | disposition home or self-care (01) ==
LOC: MED 03:25
DX: M10.071 Idiopathic gout, right ankle and foot (principal); Z79.899 Other long term (current) drug therapy; Z79.1 Long term (current) use of non-steroidal anti-inflammatories (NSAID); Z79.2 Long term (current) use of antibiotics
CPT/HCPCS: 73660; 81025; 96372; 99284; J1885; J2930; Q0092

== ENCOUNTER 2022-10-17 11:54 | Emergency (ER) | payer OTHER ==
[~2022-10-17] VITALS: Ht 157.5 cm; Wt 68.7 kg
[~2022-10-17 11:54] MED LIST changes: +INDO-305 PO; +PRED20TA5 PO
[2022-10-17 12:09] VITALS: BP 106/67
--- NOTE | 2022-10-17 12:20 | NUR ---
C/O MID ABDOMINAL PAIN, NAUSEA, LOWER BACK PAIN X 2 WEEKS. 2 WEEKS. PMH: GALL BLADDER REMOVAL
[2022-10-17 13:04] LABS: BASOPHILS % (AUTO) 0.3 % (0.0-2.0); EOSINOPHILS # (AUTO) 0.1 K/uL (0-0.4); EOSINOPHILS % (AUTO) 0.8 % (0.0-4.0); HEMATOCRIT 43.5 % (36-48); HEMOGLOBIN 14.8 g/dL (12.0-16.0); LYMPHOCYTES # (AUTO) 1.6 K/uL (2.5-16.5); LYMPHOCYTES % (AUTO) 14.7 % (20.5-51.1); MEAN CORPUSCULAR HEMOGLOBIN 31 pg (27-31); MEAN CORPUSCULAR HGB CONC 34 g/dL (33-37); MEAN CORPUSCULAR VOLUME 89.8 fL (80-94); MONOCYTES # (AUTO) 0.5 K/uL (0.8-1.0); MONOCYTES % (AUTO) 4.9 % (1.7-9.3); NEUTROPHILS # (AUTO) 8.4 K/uL (1.8-7.7); NEUTROPHILS % (AUTO) 79.3 % (42.2-75.2); PLATELET COUNT (AUTO) 183 K/uL (140-450); RED BLOOD CELL COUNT(AUTO) 4.85 MIL/uL (4.20-5.40); RED CELL DISTRIBUTION WIDTH 13.9 % (11.6-13.7); WHITE BLOOD COUNT (AUTO) 10.6 K/uL (4.8-10.8)
[2022-10-17 13:20] LABS: APPEARANCE,URINE CLEAR (CLEAR); BILIRUBIN,URINE NEGATIVE (NEGATIVE); BLOOD, URINE NEGATIVE (NEGATIVE); COLOR,URINE YELLOW (YELLOW); LEUKOCYTE ESTERASE ,URINE NEGATIVE (NEGATIVE); NITRITE, URINE NEGATIVE (NEGATIVE); UGLUCOSE NEGATIVE (NEGATIVE)
[2022-10-17] MEDS ORDERED: DOXY1TCP PO (13:35)
[2022-10-17] MEDS ORDERED: ONDA-188 SL (13:35)
[2022-10-17] MEDS ORDERED: METO-485 PO (13:35)
[2022-10-17 13:48] LABS: ALBUMIN 4.2 g/dL (3.4-5.0); ANION GAP 9.7 (8-16); CARBON DIOXIDE 27.5 mmol/L (21-32); CREATININE 0.7 mg/dL (0.6-1.3); POTASSIUM 4.2 mmol/L (3.5-5.1); TOTAL BILIRUBIN 0.7 mg/dL (0.0-1.0)
[2022-10-17 13:54] VITALS: BP 106/67
--- NOTE | 2022-10-17 13:54 | NUR ---
Patient discharged with v/s stable. Written and verbal after care instructions given and explained. Patient alert, oriented and verbalized understanding of instructions. Ambulatory with steady gait. All questions addressed prior to discharge. ID band removed. Patient advised to follow up with PMD. Rx of ZOFRAN , REGLAN, DOXYLAMINE given. Patient educated on indication of medication including possible reaction and side effects. Opportunity to ask questions provided and answered.
== END 2022-10-17 13:54 | disposition home or self-care (01) ==
LOC: MED 11:54
DX: O21.8 Other vomiting complicating pregnancy (principal); Z90.49 Acquired absence of other specified parts of digestive tract; Z79.899 Other long term (current) drug therapy; Z79.1 Long term (current) use of non-steroidal anti-inflammatories (NSAID); Z79.2 Long term (current) use of antibiotics; Z3A.01 Less than 8 weeks gestation of pregnancy
CPT/HCPCS: 36415; 80053; 81003; 81025; 84702; 85025; 99283

== ENCOUNTER 2022-10-17 23:55 | Emergency (ER) | payer OTHER ==
[~2022-10-17] VITALS: Ht 157.5 cm; Wt 6.8 kg
[~2022-10-17 23:55] MED LIST changes: +DOXY1TCP PO; +METO-485 PO; +ONDA-188 SL
[2022-10-18 00:04] VITALS: BP 108/61
--- NOTE | 2022-10-18 00:04 | NUR ---
TO LOBBY A/W BED AMBULATORY
--- NOTE | 2022-10-18 01:49 | NUR ---
SEEN AND EXAMINED BY ANDREW
--- NOTE | 2022-10-18 04:00 | NUR ---
Patient discharged with v/s stable. Written and verbal after care instructions given and explained. Patient verbalized understanding. Ambulatory with steady gait. All questions addressed prior to discharge. Advised to follow up with PMD.
== END 2022-10-18 04:00 | disposition home or self-care (01) ==
LOC: MED 23:55
DX: O20.0 Threatened abortion (principal); Z3A.01 Less than 8 weeks gestation of pregnancy; Z79.899 Other long term (current) drug therapy
CPT/HCPCS: 36415; 84702; 99284